=== PATIENT | female | born 1995 | race African-American/Black ===

== ENCOUNTER 2016-12-28 20:48 | Emergency (ER) | payer SELFPAY ==
[~2016-12-28] VITALS: Ht 162.6 cm; Wt 55.8 kg
[2016-12-28 22:30] VITALS: BP 139/79
[2016-12-28 23:15] VITALS: BP 105/65
[2016-12-29 01:15] VITALS: BP 98/64
[2016-12-29 03:15] VITALS: BP 97/61
[2016-12-29 04:55] VITALS: BP 98/62
--- NOTE | 2016-12-29 05:15 | Emergency Room Report ---
History of Present Illness General Chief Complaint: Alcohol Intoxication Source: Patient, EMS Present Illness HPI 21-year-old female presents ED for evaluation. Per EMS patient brought in for alcohol intoxication. Was observed drinking at club [employer]. No reported drug use. Upon arrival patient is lethargic but protecting airway. No signs of trauma. No reported nausea or vomiting. No other aggravating relieving factors. No other associated symptoms Allergies: Coded Allergies: UNABLE TO ASSESS (Unverified , 12/28/16) Patient History Past Medical History: none Past Surgical History: none Pertinent Family History: none Social History: Denies: alcohol use, drug use, smoking Last Menstrual Period: UNKNOWN Now: No Immunizations: UTD Reviewed Nursing Documentation: PMH: Agreed, PSxH: Agreed Nursing Documentation-PMH Past Medical History Deferred: Patient Unconscious Past Medical History: No Stated History Review of Systems All Other Systems: negative except mentioned in HPI Physical Exam Vital Signs Date Time Temp Pulse Resp B/P Pulse Ox O2 Delivery O2 Flow Rate FiO2 12/28/16 20:48 97.9 100 16 145/86 98 Room Air Sp02 EP Interpretation: reviewed, normal General Appearance: non-toxic, lethargic Head: normocephalic Eyes: bilateral eye PERRL, bilateral eye normal inspection ENT: normal ENT inspection Neck: full range of motion Respiratory: chest non-tender, lungs clear, normal breath sounds, speaking full sentences Cardiovascular #1: regular rate, rhythm, no edema Gastrointestinal: normal bowel sounds, non tender, soft, non-distended, no guarding, no rebound Rectal: deferred Genitourinary: no CVA tenderness Musculoskeletal: normal inspection Neurologic: other - intoxicated Psychiatric: other - intoxicated Skin: normal inspection Lymphatic: normal inspection Medical Decision Making Diagnostic Impression: Primary Impression: Acute alcoholic intoxication Qualified Codes: F10.120 - Alcohol abuse with intoxication, uncomplicated ER Course Hospital Course 21-year-old female presents to ED status post EtOH intoxication. Clinical course Patient placed on stretcher. Given that patient is able to provide an adequate history, I see no need to check blood work or place an IV. Patient allowed to sleep. My assessment shows no evidence of SI/HI requiring psychiatric evaluation. Patient allowed to rest in now awake alert oriented x3. ambulating without difficulty. Family is at bedside and can take patient home. Diagnosis - ETOH intoxication stable and discharged to home. Followup with PMD. Return to ED if symptoms recur or worsen Last Vital Signs Date Time Temp Pulse Resp B/P Pulse Ox O2 Delivery O2 Flow Rate FiO2 12/29/16 03:15 77 15 97/61 100 Room Air 12/29/16 01:15 98.1 Status: improved Disposition: HOME, SELF-CARE Condition: Stable Referrals: NOT CHOSEN IPA/,REFERRING (PCP) Patient Instructions: Alcohol Intoxication EMANUEL WALDROP M.D. Dec 29, 2016 05:15
== END 2016-12-29 04:55 | disposition home or self-care (01) ==
LOC: EDBD 20:48 → EMR 21:30
DX: F10.120 Alcohol abuse with intoxication, uncomplicated (principal)
CPT/HCPCS: 99284